=== PATIENT | male | born 1985 | race Caucasian/White ===

== ENCOUNTER 2023-06-22 07:06 | Day surgery (SDC) | payer OTHER ==
--- NOTE | 2023-06-15 15:45 | HP ---
DATE OF SURGERY: 06/22/2023 HISTORY OF PRESENT ILLNESS: The patient is a 37-year-old who presented with complaints of thinking that he had a hernia. He had some work up that showed a possible lymph node. The lymph node was in the groin. It was quite tender and enlarged at the time. On presentation in the office, it is not tender whatsoever and has reportedly gotten smaller per the patient. He does complain of having some dark, tarry stools. He is known to have a hemorrhoid. He once complained of some blood in his semen and was sent to urology. They told him that it was fine. There is no family history of colon cancer. He does have some left upper quadrant pain that is kind of dull and consistent. PAST MEDICAL HISTORY: Hemorrhoid, hypertension, allergic rhinitis. PAST SURGICAL HISTORY: Tonsillectomy. ALLERGIES: NKDA. AVOCADO. MEDICATIONS: Claritin, Flomax, metoprolol. FAMILY HISTORY: Hypertension, atrial fibrillation. SOCIAL HISTORY: Former smoker, occasionally drinks alcohol. REVIEW OF SYSTEMS: CONSTITUTIONAL: Denies fever or chills. CHEST: Denies shortness of breath. CVS: Denies chest pain. ABDOMEN: Reports left upper quadrant pain. PHYSICAL EXAMINATION: GENERAL: No acute distress. CHEST: Nonlabored. No shortness of breath. CVS: Regular rate and rhythm. ABDOMEN: Soft. : Left groin has a small subcentimeter lymph node that is nontender to palpation. IMPRESSION: Dark, tarry stools, melena, left upper quadrant abdominal pain, cholelithiasis on CT scan, left groin lymphadenopathy, right groin subcentimeter lymphadenopathy. PLAN: EGD and colonoscopy with Dr. Billy Cisneros and will schedule a bilateral groin ultrasound in three months. We will also order a formal gallbladder workup for this patient. As dictated by Marilyn Estrella NP.
[2023-06-22 07:30] VITALS: RESP 18
[2023-06-22] MEDS ORDERED: Lactated Ringers 1,000 ML IV SCH (07:30)
[2023-06-22] MEDS ORDERED: DIPRIVAN 200 MG/20 ML IV ONE ×3 (08:52→09:10)
[2023-06-22] MEDS ORDERED: Versed 2 MG/2 ML Injection ONE (08:52)
[2023-06-22] MEDS ORDERED: SUBLIMAZE 100 MCG/2 ML ONE (08:52)
--- NOTE | 2023-06-22 10:03 | OP ---
SURGERY DATE/TIME: 06/22/2023 0859 PREOPERATIVE DIAGNOSIS: Epigastric pain, dark tarry stool, blood per rectum. POSTOPERATIVE DIAGNOSES: 1) Grade 2/4 gastroesophageal reflux disease. 2) Gastritis body and antrum. 3) The patient has a healing superficial gastric ulceration nearly 1 cm about an inch from the pylorus. PROCEDURES: 1) EGD with cold biopsy for Helicobacter pylori. 2) Colonoscopy. SURGEON: Billy Cisneros M.D. ANESTHESIA: MAC. COMPLICATIONS: None. CONDITION: Stable. DESCRIPTION OF PROCEDURE: Scope introduced. Pharyngoesophageal junction normal. Esophagus normal down to gastroesophageal junction. Rim of esophagitis grade 2. Fundus satisfactory. There was gastritis in the body and the antrum. There was specifically gastric ulcer on posterior right wall 1 inch from the pylorus. It was nearly 1 cm but it had an eschar. Picture was given to the mother for the patient. Pylorus normal. Duodenal bulb normal. Second portion normal. Scope looped upon itself normal. No hiatal hernia. Satisfactory with no additional findings. Anal digital examination normal tone. Scope introduced. Scope advanced to the cecum. Base of the cecum, ileocecal valve, appendiceal orifice was normal. Base of the cecum, ascending, hepatic, transverse, splenic, descending, sigmoid, rectum and anus very mild internal hemorrhoids. The patient tolerated the procedure satisfactory. The patient has some other work up going on and we will see him back in two weeks. He was placed on Protonix 40 mg for six weeks. Instructions to lighten up on some activities.
[2023-06-22 10:32] VITALS: BP 134/89; PULSE 65; TEMP 97.6; O2SAT 100
== END 2023-06-22 10:20 | disposition home or self-care (01) ==
LOC: SDC 07:06
PROVIDERS: ATTEND Surgery
DX: K21.9 Gastro-esophageal reflux disease without esophagitis (principal); R10.13 Epigastric pain; K92.1 Melena; K29.70 Gastritis, unspecified, without bleeding; K25.9 Gastric ulcer, unspecified as acute or chronic, without hemorrhage or perforation; K64.8 Other hemorrhoids
CPT/HCPCS: 87081; J2250; J2704; J3010